=== PATIENT | female | born 1955 | race Caucasian/White ===

== ENCOUNTER → 2016-06-20 | Outpatient (CLI) | payer MEDICARE ==
[~2016-06-20] MED LIST: CALCTAB43 PO; CIPR250T3 OR; FLAG500T OR; MEGE40TA2 OR; MILKSUS OR; ONETAB3 PO; PERCOCET PO; PROA1AER IN; QVAR0.07 IN; RANI150T PO; TYLE325T5 PO; VITA500T3 PO; [UNRECOGNIZED DRUG - REMARK] PO
[2016-06-20 13:00] LABS: ANION GAP 6 MEQ/L (8-16); BLOOD UREA NITROGEN 25 MG/DL (7-18); CALCIUM LEVEL 8.6 MG/DL (8.8-10.2); CARBON DIOXIDE LEVEL 30 MEQ/L (21-32); CHLORIDE LEVEL 108 MEQ/L (98-107); CREATININE FOR GFR 0.78 MG/DL (0.55-1.02); GLOMERULAR FILTRATION RATE > 60.0 (>45); GLUCOSE, FASTING 85 MG/DL (80-110); POTASSIUM SERUM 3.8 MEQ/L (3.5-5.1); SODIUM LEVEL 144 MEQ/L (136-145)
[2016-06-22 00:06] LABS: Lyme Disease IgG/IgM Antibodie <0.91 ISR (0.00-0.90); Lyme Disease IgM Ab Quantitati <0.80 index (0.00-0.79)
== END ==
LOC: M LAB 11:04
PROVIDERS: ATTEND Physician Assistant Medical
DX: Z11.2 Encounter for screening for other bacterial diseases (principal); R60.0 Localized edema

== ENCOUNTER → 2017-06-09 | Outpatient (CLI) | payer MEDICARE ==
[2017-06-09 10:46] LABS: BASO % 0.5 % (0.0-1.0); EOS # 0.1 10^3/uL (0.0-0.50); EOS % 1.6 % (0.0-3.0); HEMATOCRIT 43.3 % (36.0-47.0); IMMATURE GRANULOCYTE % 0.4 % (0-3.0); LYMPH # 2.6 10^3/uL (1.5-4.5); LYMPH % 34.8 % (24.0-44.0); MEAN CORPUSCULAR HEMOGLOBIN 29.8 pg (27.0-33.0); MEAN CORPUSCULAR HGB CONC 32.3 g/dl (32.0-36.5); MEAN CORPUSCULAR VOLUME 92.1 fl (80.0-96.0); MONO # 0.6 10^3/uL (0.0-0.8); NEUTROPHILS # 4.1 10^3/uL (1.8-7.7); NEUTROPHILS % 54.7 % (36.0-66.0); PLATELET COUNT, AUTOMATED 265 10^3/uL (150-450); RED CELL DISTRIBUTION WIDTH 14.4 % (11.5-14.5); WHITE BLOOD COUNT 7.5 10^3/uL (4.0-10.0)
[2017-06-09 11:17] LABS: ALBUMIN 3.4 GM/DL (3.2-5.2); ALKALINE PHOSPHATASE 133 U/L (45-117); ALT/SGPT 20 U/L (12-78); ANION GAP 4 MEQ/L (8-16); AST/SGOT 23 U/L (7-37); BILIRUBIN,TOTAL 0.5 MG/DL (0.2-1.0); BLOOD UREA NITROGEN 20 MG/DL (7-18); CALCIUM LEVEL 8.7 MG/DL (8.8-10.2); CARBON DIOXIDE LEVEL 30 MEQ/L (21-32); CHLORIDE LEVEL 112 MEQ/L (98-107); CHOLESTEROL LEVEL 183 MG/DL (<200); CHOLESTEROL RISK RATIO 2.152 (<5); CREATININE FOR GFR 0.72 MG/DL (0.55-1.30); GLOMERULAR FILTRATION RATE > 60.0 (>45); GLUCOSE, FASTING 85 MG/DL (70-100); HDL CHOLESTEROL 85 MG/DL (>40); LDL CHOLESTEROL 85.2 MG/DL (<100); NON-HDL-C 98 MG/DL; POTASSIUM SERUM 4.2 MEQ/L (3.5-5.1); SODIUM LEVEL 146 MEQ/L (136-145); TOTAL PROTEIN 6.5 GM/DL (6.4-8.2); TRIGLYCERIDES LEVEL 64 MG/DL (<150)
[2017-06-09 12:54] LABS: TOTAL 25(OH) VITAMIN D 23.8 NG/ML (30.0-100.0)
[2017-06-09 12:55] LABS: FOLATE > 24.0 NG/ML; VITAMIN B12 LEVEL 358 PG/ML
[2017-06-09 13:31] LABS: HEPATITIS C VIRUS ABY INDEX < 0.0 INDEX (<0.8)
== END ==
LOC: M RAD 10:40
DX: Z00.00 Encounter for general adult medical examination without abnormal findings (principal); E55.9 Vitamin D deficiency, unspecified; Z12.31 Encounter for screening mammogram for malignant neoplasm of breast; Z79.899 Other long term (current) drug therapy
CPT/HCPCS: 77067

== ENCOUNTER → 2017-11-05 | Outpatient (CLI) | payer MEDICARE, MEDICAID | LOC: M SMT 10:07 | DX: J44.9 Chronic obstructive pulmonary disease, unspecified (principal); J98.4 Other disorders of lung ==

== ENCOUNTER → 2017-11-05 | Outpatient (CLI) | payer MEDICARE, MEDICAID ==
[2017-11-05 13:36] LABS: BASO # 0.1 10^3/uL (0.0-0.2); BASO % 0.8 % (0.0-1.0); EOS # 0.1 10^3/uL (0.0-0.50); HEMATOCRIT 45.4 % (36.0-47.0); HEMOGLOBIN 14.7 g/dl (12.0-15.5); IMMATURE GRANULOCYTE % 0.3 % (0-3.0); LYMPH # 2.3 10^3/uL (1.5-4.5); LYMPH % 35.6 % (24.0-44.0); MEAN CORPUSCULAR HEMOGLOBIN 29.6 pg (27.0-33.0); MEAN CORPUSCULAR HGB CONC 32.4 g/dl (32.0-36.5); MEAN CORPUSCULAR VOLUME 91.5 fl (80.0-96.0); MONO # 0.6 10^3/uL (0.0-0.8); MONO % 8.5 % (0.0-5.0); NEUTROPHILS # 3.5 10^3/uL (1.8-7.7); NEUTROPHILS % 52.8 % (36.0-66.0); PLATELET COUNT, AUTOMATED 240 10^3/uL (150-450); RED BLOOD COUNT 4.96 10^6/uL (4.00-5.40); WHITE BLOOD COUNT 6.6 10^3/uL (4.0-10.0)
[2017-11-05 14:19] LABS: ALBUMIN 3.8 GM/DL (3.2-5.2); ALBUMIN/GLOBULIN RATIO 1.23 (1.00-1.93); ALKALINE PHOSPHATASE 141 U/L (45-117); ALT/SGPT 22 U/L (12-78); ANION GAP 8 MEQ/L (8-16); AST/SGOT 23 U/L (7-37); BILIRUBIN,TOTAL 0.5 MG/DL (0.2-1.0); BLOOD UREA NITROGEN 19 MG/DL (7-18); CALCIUM LEVEL 9.2 MG/DL (8.8-10.2); CARBON DIOXIDE LEVEL 27 MEQ/L (21-32); CHLORIDE LEVEL 110 MEQ/L (98-107); CHOLESTEROL LEVEL 203 MG/DL (<200); CHOLESTEROL RISK RATIO 2.206 (<5); CREATININE FOR GFR 0.69 MG/DL (0.55-1.30); FERRITIN 24 NG/ML (8-252); FOLATE > 24.0 NG/ML; GLOMERULAR FILTRATION RATE > 60.0 (>45); GLUCOSE, FASTING 95 MG/DL (70-100); HDL CHOLESTEROL 92 MG/DL (>40); IRON (FE) 87 UG/DL (50-170); LDL CHOLESTEROL 99 MG/DL (<100); NON-HDL-C 111 MG/DL; PERCENT SATURATION 21.1 % (13.2-45.0); POTASSIUM SERUM 4.3 MEQ/L (3.5-5.1); SODIUM LEVEL 145 MEQ/L (136-145); TOTAL 25(OH) VITAMIN D 20.7 NG/ML (30.0-100.0); TOTAL IRON BINDING CAPACITY 412 UG/DL (250-450); TOTAL PROTEIN 6.9 GM/DL (6.4-8.2); TRIGLYCERIDES LEVEL 60 MG/DL (<150)
[2017-11-09 00:06] LABS: VITAMIN B1 LEVEL WHOLE BLOOD 199.7 nmol/L (66.5-200.0)
== END ==
LOC: M SMT 10:11
DX: G47.33 Obstructive sleep apnea (adult) (pediatric) (principal); J44.9 Chronic obstructive pulmonary disease, unspecified; J98.4 Other disorders of lung; E55.9 Vitamin D deficiency, unspecified; Z98.84 Bariatric surgery status
CPT/HCPCS: 82746

== ENCOUNTER → 2017-11-21 | Outpatient (CLI) | payer MEDICARE, MEDICAID | LOC: M RAD 07:59 | DX: Z12.2 Encounter for screening for malignant neoplasm of respiratory organs (principal); Z87.891 Personal history of nicotine dependence; R91.1 Solitary pulmonary nodule | CPT/HCPCS: G0297 ==

== ENCOUNTER → 2017-12-02 | Outpatient (CLI) | payer MEDICARE, MEDICAID | LOC: M SMT 09:59 | DX: R53.83 Other fatigue (principal); R60.0 Localized edema | CPT/HCPCS: 84443 ==

== ENCOUNTER → 2017-12-02 | Outpatient (CLI) | payer MEDICARE, MEDICAID ==
[2017-12-02 18:52] LABS: NT-PRO BNP 106 PG/ML (<125)
== END ==
LOC: M SMT 09:56
DX: R60.0 Localized edema (principal)

== ENCOUNTER 2018-08-05 09:16 | Day surgery (SDC) | payer MEDICARE, MEDICAID ==
[~2018-08-05] VITALS: Ht 167.6 cm; Wt 123.4 kg
[~2018-08-05 09:16] MED LIST changes: -CALCTAB43 PO; +CALCTAB74 PO; +MULT-40 PO; +ONETAB10 PO; -ONETAB3 PO; -PROA1AER IN; +PROAAER10 IN; +QC A650T3 PO; -QVAR0.07 IN; +QVAR40AE13 IN; +QVAR80AE8 IN; +VITA400T15 PO
[2018-08-05] MEDS ORDERED: LIDOCAINE 2% INJ 100 MG/5 ML SDV (FOR ANES.) As Ordered ONE (11:13)
[2018-08-05] MEDS ORDERED: ONDANSETRON 4MG/2ML VIAL (J2405) As Ordered ONE (11:13)
[2018-08-05] MEDS ORDERED: PROPOFOL 200 MG/20 ML VIAL As Ordered ONE (11:13)
[2018-08-05] MEDS ORDERED: MIDAZOLAM INJ 2 MG/2 ML VIAL (J2250) As Ordered ONE (11:14)
[2018-08-05] MEDS ORDERED: fentaNYL 100 MCG/2 ML INJECTION (J3010) As Ordered ONE ×3 (11:14→13:57)
[2018-08-05] MEDS ORDERED: ROCURONIUM BROMIDE 50 MG/5 ML VIAL As Ordered ONE (11:18)
[2018-08-05] MEDS ORDERED: dexameTHASONE 4 MG/ML 1ML VIAL (J1100) As Ordered ONE (11:18)
[2018-08-05] MEDS ORDERED: LR 1,000 ML IV ONE (11:30)
[2018-08-05] MEDS ORDERED: ROPIvacaine 0.5% 30 ML INJECTION (J2795 PER 1MG) As Ordered ONE (12:38)
[2018-08-05] MEDS ORDERED: TRIAMCINOLONE ACETONIDE SUSP 40 MG/ML VIAL (J3301) As Ordered ONE (13:15)
[2018-08-05] MEDS ORDERED: SUGAMMADEX SODIUM 500 MG/5 ML VIAL (BRIDION) As Ordered ONE (13:26)
[2018-08-05] MEDS ORDERED: KETOROLAC 60 MG/2 ML VIAL (J1885) As Ordered ONE (13:28)
--- NOTE | 2018-08-05 13:50 | RO ---
DATE OF PROCEDURE: 08/05/2018 PREOPERATIVE DIAGNOSIS: Right knee osteoarthritis and medial meniscus tear. POSTOPERATIVE DIAGNOSIS: Right knee osteoarthritis and medial meniscus tear with lateral meniscus tear. PROCEDURE: Right knee operative arthroscopy, partial medial lateral meniscectomy. SURGEON: Dr. Geovanny Washington. [employer]ENCE [employer]ER: ANESTHESIA: General: ESTIMATED BLOOD LOSS: Minimal COMPLICATIONS: None. INDICATIONS: This is a 63-year-old woman with morbid obesity who has had some persistent knee pain. An MRI scan was consistent with meniscus pathology and some arthritis. She wished to go ahead with arthroscopic evaluation. She understood the nature this the risks of bleeding, infection, damage to nerve, vessels, persistent pain, blood clots, medical problems among others. She understood her prognosis is more limited due to her weight and underlying arthritis. DESCRIPTION OF PROCEDURE: The patient was taken to the operating room and placed in the supine position after general anesthesia was induced. The right lower extremity was prepped and draped in usual sterile fashion. No tourniquet was used due to her obesity. I then created inferomedial, inferolateral portals per routine. Identified the patellofemoral joint. She had some grade 2-3 changes on the patellofemoral joint with some loose flaps. There were smoothed off. Proceeded down both gutters identified the medial compartment. The medial meniscus had a large complex medial meniscus tear that was resected with a combination of basket punch and a 4.2 shaver back to a stable rim. I reprobed the meniscus then proceeded to the notch. The anterior cruciate ligament (ACL) was unremarkable. Lateral compartment was identified. She did have a central lateral meniscus tear as well. This was debrided back with a basket punch and shaver. Once I was satisfied with the resection, I then irrigated, re-examined the entire joint, removed the instrumentation, closed the portals using #4-0 nylon suture, injected 30 mL of Naropin and 2 mL of Kenalog 10. Sterile dressing was applied. She was taken to recovery room in stable condition. There no known complications. The plan will be routine postop.
[2018-08-05] MEDS: fentaNYL 100 MCG/2 ML INJECTION (J3010) IV PRN ×3 (13:58→14:22)
[2018-08-05] MEDS ORDERED: traMADol 50 MG TAB PO PRN (14:15)
[2018-08-05] MEDS ORDERED: LR 1,000 ML IV SCH ×2 (14:15)
[2018-08-05] MEDS ORDERED: MORPHINE 2 MG/ML 1ML SYRINGE (J2270) IV PRN (14:15)
[2018-08-05] MEDS ORDERED: ONDANSETRON 4MG/2ML VIAL (J2405) IV PRN (14:15)
[2018-08-05] MEDS ORDERED: PERCOCET 5MG/325MG TAB PO PRN (14:15)
[2018-08-05 15:20] VITALS: BP 128/62
== END 2018-08-05 15:40 | disposition home or self-care (01) ==
LOC: M SDC 09:16
PROVIDERS: ATTEND Orthopaedic Surgery
DX: M23.203 Derangement of unspecified medial meniscus due to old tear or injury, right knee (principal); M17.11 Unilateral primary osteoarthritis, right knee; M67.51 Plica syndrome, right knee; G47.33 Obstructive sleep apnea (adult) (pediatric); J44.9 Chronic obstructive pulmonary disease, unspecified; K21.9 Gastro-esophageal reflux disease without esophagitis; E66.01 Morbid (severe) obesity due to excess calories; Z98.84 Bariatric surgery status; E04.9 Nontoxic goiter, unspecified; Z87.891 Personal history of nicotine dependence; Z79.899 Other long term (current) drug therapy
CPT/HCPCS: 29881; J0690; J1100; J1885; J2250; J2405; J2795; J3010; J3301

== ENCOUNTER → 2018-12-08 | Outpatient (REF) | payer MEDICARE, MEDICAID ==
[~2018-12-08] MED LIST changes: +CYAN500T8 PO; -VITA500T3 PO
[2018-12-08 12:59] LABS: BASO % 0.7 % (0.0-1.0); EOS # 0.2 10^3/uL (0.0-0.5); EOS % 2.4 % (0.0-3.0); HEMOGLOBIN 13.6 g/dl (12.0-15.5); LYMPH # 1.9 10^3/uL (1.5-5.0); LYMPH % 31.5 % (24.0-44.0); MEAN CORPUSCULAR HEMOGLOBIN 28.9 pg (27.0-33.0); MEAN CORPUSCULAR HGB CONC 31.6 g/dl (32.0-36.5); MEAN CORPUSCULAR VOLUME 91.3 fl (80.0-96.0); MONO # 0.6 10^3/uL (0.0-0.8); MONO % 10.3 % (0.0-5.0); NEUTROPHILS # 3.4 10^3/uL (1.5-8.5); NEUTROPHILS % 54.8 % (36.0-66.0); PLATELET COUNT, AUTOMATED 267 10^3/uL (150-450); RED BLOOD COUNT 4.71 10^6/uL (4.00-5.40); WHITE BLOOD COUNT 6.1 10^3/uL (4.0-10.0)
[2018-12-08 13:19] LABS: ALBUMIN 3.3 GM/DL (3.2-5.2); ALT/SGPT 20 U/L (12-78); BILIRUBIN,TOTAL 0.7 MG/DL (0.2-1.0); BLOOD UREA NITROGEN 18 MG/DL (7-18); CARBON DIOXIDE LEVEL 30 MEQ/L (21-32); CHLORIDE LEVEL 109 MEQ/L (98-107); CHOLESTEROL LEVEL 160 MG/DL (<200); CHOLESTEROL RISK RATIO 1.797 (<5); CREATININE FOR GFR 0.83 MG/DL (0.55-1.30); GLOMERULAR FILTRATION RATE > 60.0 (>45); GLUCOSE, FASTING 82 MG/DL (70-100); HDL CHOLESTEROL 89 MG/DL (>40); LDL CHOLESTEROL 60 MG/DL (<100); NON-HDL-C 71 MG/DL; POTASSIUM SERUM 4.1 MEQ/L (3.5-5.1); SODIUM LEVEL 144 MEQ/L (136-145); TRIGLYCERIDES LEVEL 53 MG/DL (<150)
[2018-12-10 00:07] LABS: Lyme Disease IgG/IgM Antibodie <0.91 ISR (0.00-0.90); Lyme Disease IgM Ab Quantitati <0.80 index (0.00-0.79)
== END ==
LOC: M LABDRAW1 11:44
PROVIDERS: ATTEND Family Medicine
DX: I10 Essential (primary) hypertension (principal); S10.96XA Insect bite of unspecified part of neck, initial encounter

== ENCOUNTER → 2018-12-17 | Outpatient (REF) | payer MEDICARE, MEDICAID | LOC: M LAB REF 17:09 | PROVIDERS: ATTEND Radiology Diagnostic Radiology | DX: N60.81 Other benign mammary dysplasias of right breast (principal) ==

== ENCOUNTER → 2019-04-16 | Outpatient (CLI) | payer MEDICARE, MEDICAID ==
--- NOTE | 2019-04-16 17:41 | REP ---
Chest CT without contrast: Low-dose screening exam. History: Personal history of nicotine dependence. Comparison CT study November 21, 2017. There is also a comparison chest CT study from March 10, 2012. Also reviewed is a CT abdomen from November 27, 2005. This patient has a known stable 3.3 cm benign lung mass in the left lower lobe. CT findings: The previously noted large lung nodule in the left lower lobe is again seen measuring 2.8 cm in greatest diameter today. This is unchanged from studies dating back to 2005. Above this in the left lower lobe, there is a noncalcified 6 mm nodule which is displayed on axial CT page 52 of 102 in series 201 of today's study. This is slightly larger than on comparison CT study. No other pulmonary nodule is appreciated. Study is otherwise unremarkable. Impression: 1. Stable 3 cm left lower lobe lung mass, unchanged dating back to 2005.2. 6 mm noncalcified pulmonary nodule above this in the left lower lobe larger than on prior studies. 6-month follow-up chest CT study recommended. Lung BIRADS category 3 findings. Electronically Signed by Jese Flaherty MD 04/16/2019 06:58 P
== END ==
LOC: M RAD 13:15
PROVIDERS: ATTEND Internal Medicine Pulmonary Disease
DX: Z87.891 Personal history of nicotine dependence (principal); R91.8 Other nonspecific abnormal finding of lung field

== ENCOUNTER → 2019-08-06 | Outpatient (CLI) | payer MEDICARE, MEDICAID ==
--- NOTE | 2019-08-06 11:59 | REP ---
CT CHEST WITHOUT CONTRAST: HISTORY: Other nonspecific abnormal finding of the lung field. Comparison CT study is a screening exam from April 16, 2019. Comparison is also made with screening lung CT study, November 21, 2017. CT FINDINGS: There is a stable mass in the left lower lobe posteriorly and medially measuring 3.1 cm in greatest transverse dimension by 3.7 cm in greatest oblique craniocaudal dimension. This is unchanged from numerous prior studies. There are small adjacent subcentimeter nodules, which are also stable. There is a 6 mm noncalcified nodule above this mass in the left lower lobe which it is unchanged from April 16, 2019. It appears slightly more prominent than on the November 21, 2017 study. There are other scattered stable tiny nodules in the left lower lobe. There is vascular calcification. The patient is status post gastric bypass procedure. No hilar or mediastinal mass or adenopathy is observed. No bony destructive lesion is seen. IMPRESSION: Multiple left lower lobe nodules and a stable left lower lobe lung mass. No change from most recent prior study of April 16, 2019. Electronically Signed by Jese Flaherty MD 08/06/2019 12:08 P
== END ==
LOC: M RAD 09:20
PROVIDERS: ATTEND Internal Medicine Pulmonary Disease
DX: R91.8 Other nonspecific abnormal finding of lung field (principal)

== ENCOUNTER → 2019-08-06 | Outpatient (CLI) | payer MEDICARE, MEDICAID ==
[2019-08-06 10:24] LABS: BLOOD UREA NITROGEN 26 MG/DL (7-18); CALCIUM LEVEL 9.2 MG/DL (8.8-10.2); CARBON DIOXIDE LEVEL 31 MEQ/L (21-32); CHLORIDE LEVEL 108 MEQ/L (98-107); CREATININE FOR GFR 0.82 MG/DL (0.55-1.30); GLOMERULAR FILTRATION RATE > 60.0 (>45); GLUCOSE, FASTING 85 MG/DL (70-100); POTASSIUM SERUM 4.2 MEQ/L (3.5-5.1); SODIUM LEVEL 141 MEQ/L (136-145)
== END ==
LOC: M LAB 08:58
PROVIDERS: ATTEND Physician Assistant
DX: R60.0 Localized edema (principal)

== ENCOUNTER → 2020-02-23 | Outpatient (CLI) | payer MEDICAID, MEDICARE ==
[~2020-02-23] MED LIST changes: +CYAN500T14 PO; -CYAN500T8 PO
--- NOTE | 2020-02-23 19:15 | REP ---
INDICATION: ABN FINDINGS OF LUNG FIELD, WITH I LOGIC/MONARCH PROTOCOL. COMPARISON: 08/06/2019. TECHNIQUE: CT chest performed without the use of intravenous contrast. Sagittal and coronal reconstruction images are performed. FINDINGS: Lungs: Mild scattered subpleural scarring of the right lung. The superior segment of left lower lobe there is a nodule measuring 5 mm in diameter, on image 56. This is unchanged. More inferiorly in the medial left lower lobe there is a mass abutting the medial pleura adjacent to the descending thoracic aorta. This measures approximately 2.3 x 2.7 cm, unchanged. There are also scattered fibrotic changes throughout the left lung. Mediastinum: No gross adenopathy. Juliet: No gross adenopathy. Axilla: No gross adenopathy. Pleura: No effusion. Heart: Not enlarged. Thoracic aorta: No aneurysm. Upper abdominal structures: There has been prior gastric surgery. A calcification is seen in the right lobe of the liver. There is a stable 1.4 cm left adrenal nodule most likely representing an adenoma. Two punctate calcifications are seen in the upper lip left kidney and 1 is seen in the upper right kidney. There is a larger 5 mm calcification in the upper right kidney. Visualized osseous structures: There are degenerative changes of the spine without compression deformity. IMPRESSION: No change in subcentimeter nodule superior segment left lower lobe and the larger mass in the medial aspect of the left lower lobe when compared to the prior CT exam. No new nodules or adenopathy. <Electronically signed by Caleb Schaffer > 02/23/201911
== END ==
LOC: M RAD 14:22
PROVIDERS: ATTEND Internal Medicine Pulmonary Disease
DX: R91.8 Other nonspecific abnormal finding of lung field (principal); D35.02 Benign neoplasm of left adrenal gland; J84.10 Pulmonary fibrosis, unspecified; N20.0 Calculus of kidney

== ENCOUNTER → 2020-08-23 | Outpatient (CLI) | payer MEDICARE ==
--- NOTE | 2020-08-23 13:19 | REP ---
INDICATION: ABN FINDINGS OF LUNG FIELD. The patient gives a history of prior breast carcinoma. COMPARISON: Comparison is made with multiple chest CTs, the most recent of which is from February 23, 2020 and the most remote of which is dated 10 March 2012.. TECHNIQUE: Helical scanning is acquired. 3 mm axial images are generated. Coronal and sagittal MPR and coronal MIP images are generated. FINDINGS: There is no evidence of pleural or pericardial effusion. Vascular calcification is noted and mitral annular calcification is noted. No hilar or mediastinal mass or adenopathy is observed. Patient is status post gastric bypass procedure. There is a granulomatous calcification in the right lobe of the liver. No adrenal mass lesion is observed on either side. The visualized upper abdominal structures are unremarkable. No extra thoracic mass or adenopathy is seen. There is a bilobed appearing mass in the left lower lobe of the lung again noted. This measures 3.7 cm in greatest craniocaudal span by 2.8 cm right to left by 2.2 cm anterior to posterior. There is a small eccentrically placed calcification within the mass. This lesion is visible on a multiple prior studies including the March 10, 2012 study and is essentially unchanged over that interval. This suggests a benign etiology such as hamartoma. Also noted is a stable 5 mm nodule in the left lower lobe on page 02/18/2056 in series 201 of today's study. There is a stable tiny 2-3 mm nodule in the superior segment of the left lower lobe on page 41 of today's exam. No new pulmonary nodule is appreciated. IMPRESSION: Bilobed stable appearing left lower lobe mass 3.7 cm in greatest diameter. There are 2 other stable subcentimeter nodules in the left lower lobe. No hilar or mediastinal adenopathy. <Electronically signed by Earle Flaherty > 08/23/20 [id number]
== END ==
LOC: M RAD 12:34
PROVIDERS: ATTEND Internal Medicine Pulmonary Disease
DX: R91.8 Other nonspecific abnormal finding of lung field (principal)

== ENCOUNTER → 2021-08-31 | Outpatient (CLI) | payer MEDICARE, MEDICAID | LOC: M PLAIMG 08:20 | PROVIDERS: ATTEND Internal Medicine Pulmonary Disease | DX: R91.8 Other nonspecific abnormal finding of lung field (principal); Z98.84 Bariatric surgery status; I70.0 Atherosclerosis of aorta; N20.0 Calculus of kidney ==

== ENCOUNTER → 2023-01-24 | Outpatient (CLI) | payer MEDICARE, MEDICAID ==
[2023-01-24 17:55] LABS: BASO # 0.1 10^3/uL (0.0-0.2); BASO % 0.8 % (0.0-1.0); EOS # 0.2 10^3/uL (0.0-0.5); EOS % 2.7 % (0.0-3.0); HEMATOCRIT 43.4 % (36.0-47.0); HEMOGLOBIN 13.6 g/dl (12.0-15.5); LYMPH # 2.5 10^3/uL (1.5-5.0); LYMPH % 34.3 % (24.0-44.0); MEAN CORPUSCULAR HEMOGLOBIN 28.3 pg (27.0-33.0); MEAN CORPUSCULAR HGB CONC 31.3 g/dl (32.0-36.5); MEAN CORPUSCULAR VOLUME 90.2 fl (80.0-96.0); MONO # 0.8 10^3/uL (0.0-0.8); MONO % 10.9 % (2.0-8.0); NEUTROPHILS # 3.6 10^3/uL (1.5-8.5); PLATELET COUNT, AUTOMATED 290 10^3/uL (150-450); RED BLOOD COUNT 4.81 10^6/uL (4.00-5.40); WHITE BLOOD COUNT 7.1 10^3/uL (4.0-10.0)
[2023-01-24 18:19] LABS: ALBUMIN 3.6 G/DL (3.2-5.2); ALKALINE PHOSPHATASE 132 U/L (46-116); ALT/SGPT 20 U/L (7.0-40); AST/SGOT 25 U/L (<34); BILIRUBIN,TOTAL 0.6 MG/DL (0.3-1.2); BLOOD UREA NITROGEN 21 MG/DL (9-23); CALCIUM LEVEL 9.8 MG/DL (8.3-10.6); CARBON DIOXIDE LEVEL 26 MMOL/L (20-31); CHLORIDE LEVEL 108 MMOL/L (98-107); CHOLESTEROL LEVEL 182 MG/DL (<200); CHOLESTEROL RISK RATIO 2.06 (<5); CREATININE FOR GFR 0.75 MG/DL (0.55-1.30); GLOMERULAR FILTRATION RATE > 60.0 (>45); GLUCOSE, FASTING 86 MG/DL (74-106); HDL CHOLESTEROL 88.2 MG/DL (>40); LDL CHOLESTEROL 84.4 MG/DL (<100); NON-HDL-C 93.8 MG/DL; POTASSIUM SERUM 4.2 MMOL/L (3.5-5.1); SODIUM LEVEL 143 MMOL/L (136-145); TOTAL PROTEIN 6.4 G/DL (5.7-8.2); TRIGLYCERIDES LEVEL 47 MG/DL (<150)
[2023-01-24 18:21] LABS: TOTAL 25(OH) VITAMIN D 24.4 NG/ML (20.0-100.0)
== END ==
LOC: M LAB 16:27
PROVIDERS: ATTEND Registered Nurse
DX: E87.70 Fluid overload, unspecified (principal); E66.9 Obesity, unspecified; E55.9 Vitamin D deficiency, unspecified; E78.5 Hyperlipidemia, unspecified

== ENCOUNTER → 2023-09-22 | Outpatient (CLI) | payer MEDICARE, MEDICAID | LOC: M PLAIMG 11:08 | PROVIDERS: ATTEND Internal Medicine Pulmonary Disease | DX: R91.8 Other nonspecific abnormal finding of lung field (principal); J44.9 Chronic obstructive pulmonary disease, unspecified ==

== ENCOUNTER → 2023-11-06 | Outpatient (REF) | payer MEDICARE, MEDICAID | LOC: M LAB REF 17:04 | PROVIDERS: ATTEND Registered Nurse | DX: J44.9 Chronic obstructive pulmonary disease, unspecified (principal) ==

== ENCOUNTER → 2023-12-04 | Outpatient (CLI) | payer MEDICARE, MEDICAID | LOC: M PLAIMG 12:52 | PROVIDERS: ATTEND Internal Medicine Pulmonary Disease | DX: J44.9 Chronic obstructive pulmonary disease, unspecified (principal); R05.9 Cough, unspecified; J98.11 Atelectasis ==

== ENCOUNTER → 2023-12-09 | Outpatient (CLI) | payer MEDICARE, MEDICAID | LOC: M PLALAB 13:04 | PROVIDERS: ATTEND Internal Medicine Pulmonary Disease | DX: J44.9 Chronic obstructive pulmonary disease, unspecified (principal) ==

== ENCOUNTER → 2023-12-10 | Outpatient (CLI) | payer MEDICARE, MEDICAID | LOC: M RAD 07:52 | PROVIDERS: ATTEND Internal Medicine Pulmonary Disease | DX: R06.02 Shortness of breath (principal); R91.8 Other nonspecific abnormal finding of lung field ==

== ENCOUNTER → 2024-01-13 | Outpatient (REF) | payer MEDICARE, MEDICAID | LOC: M LAB REF 14:47 | PROVIDERS: ATTEND Internal Medicine Pulmonary Disease | DX: J44.9 Chronic obstructive pulmonary disease, unspecified (principal) ==

== ENCOUNTER → 2024-02-17 | Outpatient (REF) | payer MEDICARE, MEDICAID | LOC: M LAB REF 12:30 | PROVIDERS: ATTEND Internal Medicine Pulmonary Disease | DX: J44.9 Chronic obstructive pulmonary disease, unspecified (principal) ==

== ENCOUNTER 2024-02-28 07:59 | Emergency (ER) | payer MEDICARE, OTHER, MEDICAID ==
[2024-02-28] MEDS: MORPHINE 2 MG/ML 1ML VIAL IV ONE (08:36)
[2024-02-28 08:38] LABS: BASO % 0.4 % (0.0-1.0); EOS % 0.4 % (0.0-3.0); HEMATOCRIT 42.4 % (36.0-47.0); HEMOGLOBIN 13.9 g/dl (12.0-15.5); LYMPH # 1.3 10^3/uL (1.5-5.0); LYMPH % 15.6 % (24.0-44.0); MEAN CORPUSCULAR HEMOGLOBIN 29.4 pg (27.0-33.0); MEAN CORPUSCULAR HGB CONC 32.8 g/dl (32.0-36.5); MEAN CORPUSCULAR VOLUME 89.6 fl (80.0-96.0); MONO # 0.4 10^3/uL (0.0-0.8); MONO % 4.5 % (2.0-8.0); NEUTROPHILS # 6.5 10^3/uL (1.5-8.5); NEUTROPHILS % 78.9 % (36.0-66.0); PLATELET COUNT, AUTOMATED 313 10^3/uL (150-450); RED BLOOD COUNT 4.73 10^6/uL (4.00-5.40); WHITE BLOOD COUNT 8.3 10^3/uL (4.0-10.0)
[2024-02-28] MEDS ORDERED: ISOVUE-370 76% 100ML VIAL As Ordered ONE (08:54)
[2024-02-28 09:05] LABS: ALBUMIN 3.4 G/DL (3.2-5.2); BILIRUBIN,DIRECT 0.2 MG/DL (<0.4); BILIRUBIN,TOTAL 0.5 MG/DL (0.3-1.2); TOTAL PROTEIN 7.2 G/DL (5.7-8.2)
[2024-02-28 09:20] LABS: KETONE, URINE AUTO RFX NEGATIVE (NEGATIVE); LEUKOCYTE ESTERASE UR AUTO RFX NEGATIVE (NEGATIVE); MUCUS, URINE RFX SMALL (NEGATIVE); NITRITE, URINE AUTO RFX NEGATIVE (NEGATIVE); RBC, URINE AUTO RFX 5 /HPF (0-3); SQUAM EPITHELIAL CELL UR AURFX 1 /HPF (0-6); WBC, URINE AUTO RFX 1 /HPF (0-3)
[2024-02-28] MEDS: MORPHINE 4 MG/ML 1ML VIAL IV ONE (09:37)
[2024-02-28] MEDS: ONDANSETRON 4MG 2ML VIAL IV ONE (10:44)
[2024-02-28 10:47] VITALS: BP 111/71; TEMP 96.6; O2SAT 93
[2024-02-28] MEDS ORDERED: PERC5TAB12 PO (11:21)
[2024-02-28] MEDS ORDERED: ONDA-282 PO (11:21)
[2024-02-28] MEDS ORDERED: FLOM0.4C39 PO (11:21)
== END 2024-02-28 11:37 | disposition home or self-care (01) ==
LOC: M ED 07:59
DX: N20.1 Calculus of ureter (principal); K57.92 Diverticulitis of intestine, part unspecified, without perforation or abscess without bleeding; J44.9 Chronic obstructive pulmonary disease, unspecified; K74.60 Unspecified cirrhosis of liver; Z79.899 Other long term (current) drug therapy
CPT/HCPCS: 74177; 80047; 80076; 81001; 83690; 85025; 93005; 96374; 96375; 96376; 99284; J2405; Q9967

== ENCOUNTER → 2024-04-16 | Outpatient (REF) | payer MEDICARE, MEDICAID ==
[~2024-04-16] MED LIST changes: +FLOM0.4C39 PO; +ONDA-282 PO; +PERC5TAB12 PO
== END ==
LOC: M LAB REF 12:53
PROVIDERS: ATTEND Internal Medicine Pulmonary Disease
DX: J47.9 Bronchiectasis, uncomplicated (principal)

== ENCOUNTER 2024-05-06 16:50 | Emergency (ER) | payer MEDICARE, MEDICAID ==
[~2024-05-06] VITALS: Ht 167.6 cm; Wt 125.1 kg
[~2024-05-06 16:50] MED LIST changes: -BREO1INH3; -CEFD1CAP9 PO; -D3-5CAP; -INCR1INH; -PRED10TA2
[2024-05-06] MEDS ORDERED: PRED10TA2 (17:02)
[2024-05-06] MEDS ORDERED: BREO1INH3 (17:02)
[2024-05-06] MEDS ORDERED: INCR1INH (17:02)
[2024-05-06] MEDS ORDERED: D3-5CAP (17:02)
[2024-05-06] MEDS: dexAMETHasone 20MG/5ML VIAL IV ONE (18:21)
[2024-05-06 18:22] LABS: BASO # 0.1 10^3/uL (0.0-0.2); BASO % 0.4 % (0.0-1.0); EOS # 0.1 10^3/uL (0.0-0.5); EOS % 0.7 % (0.0-3.0); HEMATOCRIT 41.2 % (36.0-47.0); HEMOGLOBIN 13.4 g/dl (12.0-15.5); LYMPH # 2.6 10^3/uL (1.5-5.0); LYMPH % 21.1 % (24.0-44.0); MEAN CORPUSCULAR HEMOGLOBIN 29.4 pg (27.0-33.0); MEAN CORPUSCULAR HGB CONC 32.5 g/dl (32.0-36.5); MEAN CORPUSCULAR VOLUME 90.4 fl (80.0-96.0); MONO # 0.8 10^3/uL (0.0-0.8); MONO % 6.7 % (2.0-8.0); NEUTROPHILS # 8.7 10^3/uL (1.5-8.5); NEUTROPHILS % 70.6 % (36.0-66.0); PLATELET COUNT, AUTOMATED 387 10^3/uL (150-450); RED BLOOD COUNT 4.56 10^6/uL (4.00-5.40); WHITE BLOOD COUNT 12.3 10^3/uL (4.0-10.0)
[2024-05-06 18:37] LABS: ALBUMIN 3.2 G/DL (3.2-5.2); ALKALINE PHOSPHATASE 122 U/L (35-104); ALT/SGPT 17 U/L (7.0-40); AST/SGOT 26 U/L (<34); BILIRUBIN,DIRECT 0.1 MG/DL (<0.4); BILIRUBIN,TOTAL 0.4 MG/DL (0.3-1.2); BLOOD UREA NITROGEN 20 MG/DL (9-23); CALCIUM LEVEL 9.1 MG/DL (8.3-10.6); CARBON DIOXIDE LEVEL 28 MMOL/L (20-31); CHLORIDE LEVEL 108 MMOL/L (98-107); CREATININE FOR GFR 0.97 MG/DL (0.55-1.30); GLOMERULAR FILTRATION RATE > 60.0 (>45); GLUCOSE, FASTING 85 MG/DL (74-106); POTASSIUM SERUM 4.6 MMOL/L (3.5-5.1); SODIUM LEVEL 144 MMOL/L (136-145); TOTAL PROTEIN 6.8 G/DL (5.7-8.2)
[2024-05-06] MEDS ORDERED: ISOVUE-370 76% 100ML VIAL As Ordered ONE (18:58)
[2024-05-06] MEDS: IPRATROPIUM 0.5MG/ALBUTEROL 2.5MG INH SOL UD 3ML (DUONEB) NEB PRN (19:23)
[2024-05-06] MEDS ORDERED: cefTRIAXone SOD 1 GM in DEXTROSE 5% (D5W) ADV/MINI-BAG 50 ML IV ONE (21:35)
[2024-05-06] MEDS ORDERED: CEFD1CAP9 PO (23:01)
[2024-05-06] MEDS: CEFDINIR 300 MG CAP (OMNICEF) PO ONE (23:16)
[2024-05-06 23:18] VITALS: BP 120/64; TEMP 97.5; O2SAT 93
== END 2024-05-06 23:49 | disposition home or self-care (01) ==
LOC: M ED 16:50
DX: J44.1 Chronic obstructive pulmonary disease with (acute) exacerbation (principal); J47.9 Bronchiectasis, uncomplicated; R91.8 Other nonspecific abnormal finding of lung field; Z79.899 Other long term (current) drug therapy; I51.7 Cardiomegaly; J98.11 Atelectasis
CPT/HCPCS: 71046; 71275; 80048; 80076; 83605; 85025; 87040; 87070; 87077; 87186; 87205; 87486; 87581; 87633; 87798; 93005; 93041; 94640; 94760; 96374; 99285; J1100; Q9967

== ENCOUNTER → 2024-05-06 | Outpatient (CLI) | payer MEDICARE, MEDICAID ==
[~2024-05-06] MED LIST changes: +BREO1INH3; +CEFD1CAP9 PO; +D3-5CAP; +INCR1INH; +PRED10TA2
== END ==
LOC: M RAD 09:56
PROVIDERS: ATTEND Physician Assistant
DX: J47.9 Bronchiectasis, uncomplicated (principal); R91.8 Other nonspecific abnormal finding of lung field; I51.7 Cardiomegaly; J98.11 Atelectasis

== ENCOUNTER → 2024-05-19 | Outpatient (CLI) | payer MEDICARE, MEDICAID ==
[~2024-05-19] MED LIST changes: +BREO1INH3; +CEFD1CAP9 PO; +D3-5CAP; +INCR1INH; +PRED10TA2
[2024-05-19 17:46] LABS: APPEARANCE, URINE CLEAR (CLEAR); BACTERIA, URINE AUTO 1+ (NEGATIVE); BILIRUBIN, URINE AUTO NEGATIVE (NEGATIVE); BLOOD, URINE BLOOD NEGATIVE (NEGATIVE); COLOR, URINE YELLOW (YELLOW); GLUCOSE, URINE (UA) AUTO NEGATIVE (NEGATIVE); KETONE, URINE AUTO NEGATIVE (NEGATIVE); LEUKOCYTE ESTERASE, URINE AUTO NEGATIVE (NEGATIVE); MUCUS, URINE SMALL (NEGATIVE); NITRITE, URINE AUTO NEGATIVE (NEGATIVE); PROTEIN, URINE AUTO NEGATIVE (NEGATIVE); RBC, URINE AUTO 0 /HPF (0-3); SPECIFIC GRAVITY URINE AUTO 1.006 (1.002-1.035); SQUAMOUS EPITHELIAL CELL UR AU 1 /HPF (0-6); UROBILINOGEN, URINE AUTO 0.2 mg/dL (0.0-2.0); WBC, URINE AUTO 1 /HPF (0-3)
== END ==
LOC: M RAD 16:24
PROVIDERS: ATTEND Nurse Practitioner Family
DX: K80.20 Calculus of gallbladder without cholecystitis without obstruction (principal); N20.0 Calculus of kidney; K57.30 Diverticulosis of large intestine without perforation or abscess without bleeding; R10.9 Unspecified abdominal pain; Z98.84 Bariatric surgery status

== ENCOUNTER → 2024-06-07 | Outpatient (CLI) | payer MEDICARE, MEDICAID ==
[~2024-06-07] MED LIST changes: -D3-5CAP; +D3-5CAP PO; -FLOM0.4C39 PO; +OMEP-173 PO; +OXYB5TAB14 PO; +OXYC1TAB23; -PRED10TA2; +PRED10TA2 PO; +PROA1AER2; +TAMS-18 PO; +TORS5TAB2 PO
[2024-06-07 08:45] LABS: HEMATOCRIT 39.7 % (36.0-47.0); HEMOGLOBIN 12.7 g/dl (12.0-15.5); MEAN CORPUSCULAR HEMOGLOBIN 29.7 pg (27.0-33.0); PLATELET COUNT, AUTOMATED 286 10^3/uL (150-450); RED BLOOD COUNT 4.27 10^6/uL (4.00-5.40); WHITE BLOOD COUNT 10.5 10^3/uL (4.0-10.0)
[2024-06-07 08:47] LABS: APPEARANCE, URINE CLEAR (CLEAR); BACTERIA, URINE AUTO NEGATIVE (NEGATIVE); BILIRUBIN, URINE AUTO NEGATIVE (NEGATIVE); BLOOD, URINE BLOOD 1+ (NEGATIVE); COLOR, URINE YELLOW (YELLOW); GLUCOSE, URINE (UA) AUTO NEGATIVE (NEGATIVE); KETONE, URINE AUTO NEGATIVE (NEGATIVE); LEUKOCYTE ESTERASE, URINE AUTO TRACE (NEGATIVE); MUCUS, URINE SMALL (NEGATIVE); NITRITE, URINE AUTO NEGATIVE (NEGATIVE); PROTEIN, URINE AUTO NEGATIVE (NEGATIVE); RBC, URINE AUTO 11 /HPF (0-3); SPECIFIC GRAVITY URINE AUTO 1.013 (1.002-1.035); SQUAMOUS EPITHELIAL CELL UR AU 1 /HPF (0-6); WBC, URINE AUTO 3 /HPF (0-3)
[2024-06-07 09:15] LABS: CALCIUM LEVEL 9.3 MG/DL (8.3-10.6); CREATININE FOR GFR 0.83 MG/DL (0.55-1.30); GLOMERULAR FILTRATION RATE 76.3 (>45); POTASSIUM SERUM 3.8 MMOL/L (3.5-5.1)
== END ==
LOC: M RAD 07:56
PROVIDERS: ATTEND Nurse Practitioner Family
DX: Z01.818 Encounter for other preprocedural examination (principal); N39.0 Urinary tract infection, site not specified

== ENCOUNTER 2024-06-09 07:07 | Day surgery (SDC) | payer MEDICARE, MEDICAID ==
[~2024-06-09] VITALS: Ht 167.6 cm; Wt 126.6 kg
[~2024-06-09 07:07] MED LIST changes: -OXYB5TAB14 PO; +ceFAZolin SOD 2 GM IV ONCE IV ONE
[2024-06-09] MEDS ORDERED: propofoL 200 MG/20 ML VIAL As Ordered ONE (07:44)
[2024-06-09] MEDS ORDERED: ONDANSETRON 4MG 2ML VIAL As Ordered ONE (07:44)
[2024-06-09] MEDS ORDERED: LIDOCAINE 2% 100MG/5ML SDV (FOR ANES.) As Ordered ONE (07:44)
[2024-06-09] MEDS ORDERED: fentaNYL 100 MCG/2 ML INJECTION As Ordered ONE (07:47)
[2024-06-09] MEDS ORDERED: MIDAZOLAM INJ 2MG/2ML VIAL As Ordered ONE (07:47)
[2024-06-09] MEDS ORDERED: LR 1,000 ML IV SCH (07:50)
[2024-06-09] MEDS: IPRATROPIUM 0.5MG/ALBUTEROL 2.5MG INH SOL UD 3ML NEB ONE ×2 (08:06→11:24)
[2024-06-09] MEDS ORDERED: HYDROCORTISONE 100MG/2ML VIAL As Ordered ONE (09:09)
[2024-06-09] MEDS: ceFAZolin SOD 3 GM in DEXTROSE 5% (D5W) MINI-BAG PLU 1... IV ONE (09:12)
[2024-06-09] MEDS ORDERED: ACETAMINOPHEN 1000MG/100ML IV BAG As Ordered ONE (09:12)
[2024-06-09] MEDS: ISOVUE-300 61% 100ML VIAL As Ordered ONE (10:55)
[2024-06-09] MEDS ORDERED: HYDROMORPHONE HCL 0.5 MG/ 0.5 ML SYRINGE IV PRN (11:00)
[2024-06-09] MEDS ORDERED: TAMS-18 PO (11:37)
[2024-06-09] MEDS ORDERED: OXYB5TAB14 PO (11:37)
[2024-06-09] MEDS: NORCO, ANEXSIA 5/325MG TABLET (HYDROcodone/ACETAMINOPHEN) PO PRN (12:09)
[2024-06-09] MEDS: oxyBUTYnin 5 MG TAB PO PRN (12:19)
[2024-06-09] MEDS ORDERED: PERCOCET 5MG/325MG TAB PO PRN (12:20)
[2024-06-09 13:00] VITALS: BP 137/64; TEMP 97.1; O2SAT 94
== END 2024-06-09 13:05 | disposition home or self-care (01) ==
LOC: M SDC 07:07
PROVIDERS: ATTEND Urology
DX: N13.2 Hydronephrosis with renal and ureteral calculous obstruction (principal); J44.9 Chronic obstructive pulmonary disease, unspecified; G47.33 Obstructive sleep apnea (adult) (pediatric); K21.9 Gastro-esophageal reflux disease without esophagitis; Z79.51 Long term (current) use of inhaled steroids; Z79.899 Other long term (current) drug therapy; Z98.84 Bariatric surgery status; Z90.49 Acquired absence of other specified parts of digestive tract; Z85.3 Personal history of malignant neoplasm of breast
CPT/HCPCS: 52356; 76000; 82365; C1769; C1894; C2617; J0131; J0690; J1100; J1720; J2250; J2405; J3010; Q9967

== ENCOUNTER → 2024-10-12 | Outpatient (REF) | payer MEDICARE, MEDICAID ==
[~2024-10-12] MED LIST changes: +OXYB5TAB14 PO; -ceFAZolin SOD 2 GM IV ONCE IV ONE
== END ==
LOC: M LAB REF 12:57
PROVIDERS: ATTEND Internal Medicine Pulmonary Disease
DX: J47.9 Bronchiectasis, uncomplicated (principal)

== ENCOUNTER → 2025-01-12 | Outpatient (REF) | payer MEDICARE, MEDICAID | LOC: M LAB REF 13:04 | PROVIDERS: ATTEND Internal Medicine Pulmonary Disease | DX: J47.9 Bronchiectasis, uncomplicated (principal) ==